=== PATIENT | male | born 1975 | race American Indian/Alaskan Native ===

== ENCOUNTER 2018-02-28 13:16 | Emergency (ER) | payer SELFPAY ==
[2018-02-28 13:21] VITALS: BP 141/77
--- NOTE | 2018-02-28 13:48 | Emergency Department Report ---
Chief Complaint: Medical Clearance Stated Complaint: DEHYDRATION Time Seen by Provider: 02/28/18 13:35 - HPI History of Present Illness: Patient is a 42-year-old male who presents with possible dehydration. Patient states that he was mowing his lawn and started feeling somewhat dizzy with profuse sweating. Patient states he called paramedics who gave him a liter of fluid and he feels fine. Patient denies any chest pain shortness of breath fevers chills nausea vomiting at this time. - ROS Review of Systems: All other systems are reviewed and are negative - Exam Vital Signs: Vital Signs 02/28/18 13:19 Temperature 98 F Pulse Rate 55 L Respiratory 16 Rate Blood Pressure 141/77 O2 Sat by Pulse 99 Oximetry Physical Exam: Patient's lungs clear to auscultation heart tones within normal limits abdomen soft nontender patient alert and oriented 3 were all extremities. MSE screening note: Focused history and physical exam performed. Due to findings the following was ordered: ED Medical Decision Making - Medical Decision Making Patient is a 42-year-old male who is presenting status post a dizzy episode while mowing his lawn. Patient denies chest pain shortness of breath. Patient received IV fluids before arrival and feels back to baseline. Patient' s vital signs within normal limits. Patient is not a medical emergency at this time is opted not been 150 co-pay. Patient be discharged home follow-up with us at medical clinic as needed. ED Disposition for MSE Clinical Impression: Dehydration Disposition: Z- MED SCREENING EXAM-LEFT Is pt being admited?: No Does the pt Need Aspirin: No Condition: Stable Referrals: [facility] [Outside] - 3-5 Days
== END 2018-02-28 14:02 | disposition left against medical advice (07) ==
LOC: ED 13:16
DX: E86.0 Dehydration (principal)
CPT/HCPCS: 99282